=== PATIENT | male | born 1950 ===

== ENCOUNTER 2025-06-20 06:48 | Day surgery (SDC) | payer OTHER ==
[2025-06-20] MEDS ORDERED: fentaNYL CITRATE 50 MCG/ML AMPUL IV PUSH ONE (11:15)
[2025-06-20] MEDS ORDERED: MIDAZOLAM HCL 2 MG/2 ML VIAL IV ONE (11:15)
[2025-06-20] MEDS ORDERED: DIPHENHYDRAMINE HCL 50 MG/ML VIAL 1ML IV ONE (11:15)
== END 2025-06-20 12:25 | disposition home or self-care (01) ==
LOC: AMB-ENDOS 06:48
PROVIDERS: ATTEND Colon & Rectal Surgery
DX: D12.5 Benign neoplasm of sigmoid colon (principal); D12.2 Benign neoplasm of ascending colon; D12.4 Benign neoplasm of descending colon; K63.5 Polyp of colon; Z86.0100 Personal history of colon polyps, unspecified